=== PATIENT | female | born 1970 | race Caucasian/White ===

== ENCOUNTER 2018-02-01 08:00 | Day surgery (SDC) | payer BC, OTHER ==
[~2018-02-01] VITALS: Ht 172.7 cm; Wt 108.4 kg
[~2018-02-01 08:00] MED LIST: CEFAZOLIN SOD 2 GM in D5W 50 ML IV ONE
[2018-02-01] MEDS ORDERED: ROCURONIUM BROMIDE 10 MG/ML (ZEMURON) IV ONE (09:45)
[2018-02-01] MEDS ORDERED: CEFAZOLIN 1 GM IVPB PREMIX 50 ML IV ONE (09:45)
[2018-02-01] MEDS ORDERED: SEVOFLURANE 15 MIN GAS INH ONE (09:45)
[2018-02-01] MEDS ORDERED: NS IRRIG SOLN 1000 ML IR ONE (09:45)
[2018-02-01] MEDS ORDERED: KETOROLAC TROMETHAMINE 30 MG VIAL IVP ONE (09:45)
[2018-02-01] MEDS ORDERED: LR 1,000 ML IV.SOLN IV ONE (09:45)
[2018-02-01] MEDS ORDERED: MIDAZOLAM HCL 5 MG/5 ML VIAL IVP ONE (09:45)
[2018-02-01] MEDS ORDERED: ONDANSETRON HCL 4 MG/2 ML VIAL IVP ONE (09:45)
[2018-02-01] MEDS ORDERED: fentaNYL CITRATE/PF 100 MCG/2 ML AMP IVP ONE (09:45)
[2018-02-01] MEDS ORDERED: fentaNYL CITRATE 250 MCG/5 ML AMP IV ONE (09:45)
[2018-02-01] MEDS ORDERED: WATER FOR IRRIGATION,STERILE 1,000 ML IRRIG.SOLN IR ONE (09:45)
[2018-02-01] MEDS ORDERED: PROPOFOL 200MG/ 20ML VIAL (DIPRIVAN) IV ONE (09:45)
[2018-02-01] MEDS ORDERED: LR 1,000 ML IV SCH (11:14)
[2018-02-01] MEDS ORDERED: MORPHINE 4 MG/ML INJ. SYRINGE IVP PRN ×3 (11:15)
[2018-02-01] MEDS ORDERED: METOCLOPRAMIDE HCL 10 MG/2 ML VIAL IVP PRN (11:15)
[2018-02-01] MEDS ORDERED: ONDANSETRON HCL 4 MG/2 ML VIAL IVP PRN (12:30)
[2018-02-01] MEDS ORDERED: OXYCODONE/ACETAMINOPHEN 5-325 TABLET PO PRN ×3 (12:30→14:15)
[2018-02-01] MEDS ORDERED: PROMETHAZINE HCL 25 MG/ML AMP IM PRN ×2 (12:30)
[2018-02-01 13:49] VITALS: BP_SYST 139
[2018-02-01] MEDS ORDERED: HYDROmorphone 2 MG TAB PO PRN (14:15)
[2018-02-01] MEDS ORDERED: ONDANSETRON HCL 4 MG/2 ML VIAL ONE (15:53)
[2018-02-01] MEDS ORDERED: KETOROLAC TROMETHAMINE 30 MG VIAL IVP SCH (18:00)
== END 2018-02-01 17:30 | disposition home or self-care (01) ==
LOC: SDS 08:00 → SMU 08:01 → SDS 17:30
PROVIDERS: ATTEND Obstetrics & Gynecology
DX: D25.2 Subserosal leiomyoma of uterus (principal); N83.8 Other noninflammatory disorders of ovary, fallopian tube and broad ligament; I10 Essential (primary) hypertension; D64.9 Anemia, unspecified; E78.5 Hyperlipidemia, unspecified; E03.9 Hypothyroidism, unspecified; J34.3 Hypertrophy of nasal turbinates; Z68.36 Body mass index [BMI] 36.0-36.9, adult; Z98.890 Other specified postprocedural states; Z98.51 Tubal ligation status; E55.9 Vitamin D deficiency, unspecified; E04.2 Nontoxic multinodular goiter; E66.01 Morbid (severe) obesity due to excess calories; Z79.899 Other long term (current) drug therapy; F17.200 Nicotine dependence, unspecified, uncomplicated
CPT/HCPCS: 36415; 58552; 86886; 86900; 86901; 88307; C1727; J0690 ×2; J1885; J2250; J2405; J2704; J3010 ×2; J7060; J7120; E0190